=== PATIENT | male | born 1995 | race Caucasian/White ===

== ENCOUNTER 2018-08-28 02:42 | Emergency (ER) | payer OTHER ==
[2018-08-28] MEDS ORDERED: ONDANSETRON DISINTEGRATING 4 MG TAB ONE (03:21)
[2018-08-28] MEDS ORDERED: ONDANSETRON 4 MG/2 ML VIAL ONE (03:21)
[2018-08-28] MEDS ORDERED: ONDANSETRON DISINTEGRATING 4 MG TAB PO ONE (03:27)
--- NOTE | 2018-08-28 03:41 | EDPHY ---
H & P Stated Complaint: pain on right side of face/head, no trauma Time Seen by Provider: 08/28/18 03:26 HPI/ROS: Chief Complaint: Headache, vomiting HPI: 22-year-old male is woke this morning with a headache on his right pentecostal behind his right eye. Is about a 7/10. He has not have a history of similar headaches. No fevers or chills. No vision changes. No photophobia or phonophobia. There are no aggravating or alleviating factors. Did not take any medication for this. He then developed some nausea. Prior to my entering the room he says he vomited. He says his pain is now gone. Denies recent illness. No congestion. No increased tearing. ROS: 10 systems were reviewed and were negative except those elements noted in the HPI. PMH: Denies Social History: No smoking, no alcohol, no recreational drug use Family History: non-contributory Physical Exam: Gen: Awake, Alert, No Distress HEENT: Nose: no rhinorrhea Eyes: PERRLA, EOMI Mouth: Moist mucosa Neck: Supple, no JVD Chest: nontender, lungs clear to auscultation Heart: S1, S2 normal, no murmur Abd: Soft, non-tender, no guarding Back: no CVA tenderness, no midline tenderness Ext: no edema, non-tender Skin: no rash Neuro: CN II-XII intact, Sensation grossly intact, Strength 5/5 in bilateral upper and lower extremities - Personal History Current Tetanus/Diphtheria Vaccine: Yes Current Tetanus Diphtheria and Acellular Pertussis (TDAP): Yes - Medical/Surgical History Hx Asthma: No Hx Chronic Respiratory Disease: No Hx Diabetes: No Hx Cardiac Disease: No Hx Renal Disease: No Hx Cirrhosis: No Hx Alcoholism: No Hx HIV/AIDS: No Hx Splenectomy or Spleen Trauma: No - Social History Smoking Status: Never smoked Constitutional: Initial Vital Signs Temperature (C) 36.7 C 08/28/18 02:46 Heart Rate 70 08/28/18 02:46 Respiratory Rate 16 08/28/18 02:46 Blood Pressure 125/78 H 08/28/18 02:46 O2 Sat (%) 97 08/28/18 02:46 O2 Delivery Mode Room Air Allergies/Adverse Reactions: No Known Allergies Allergy (Unverified 08/28/18 02:46) Home Medications: Medication Instructions Recorded NK [No Known Home Meds] 08/28/18 Medical Decision Making ED Course/Re-evaluation: Patient's symptoms are gone. He is tolerating p. O.. Currently without complaint. Will discharge with follow-up as an outpatient. No evidence acute intracranial bleed or infection at this time. - Data Points Medications Given: Discontinued Medications Ondansetron HCl (Zofran Odt) 4 mg PO EDNOW ONE Stop: 08/28/18 03:28 Last Admin: 08/28/18 03:28 Dose: 4 mg Departure - Departure Disposition: Home, Routine, Self-Care Clinical Impression: Headache Condition: Good Instructions: Acute Headache (ED) Additional Instructions: Follow up at [facility] in 2-3 days for further evaluation. Return to the emergency department for worsening headache, confusion, nausea, vomiting, fevers, chills, or any other concerns. Referrals: [facility],. [Clinic] - As per Instructions
[2018-08-28 04:58] VITALS: BP 115/66
== END 2018-08-28 04:55 | disposition home or self-care (01) ==
LOC: EDBD 02:42
DX: R51 Headache (principal); R11.2 Nausea with vomiting, unspecified
CPT/HCPCS: J2405

== ENCOUNTER 2019-01-28 21:27 | Emergency (ER) | payer OTHER ==
[2019-01-28 21:33] VITALS: BP 124/65
--- NOTE | 2019-01-28 22:05 | EDPHY ---
H & P Time Seen by Provider: 01/28/19 21:53 HPI/ROS: Chief complaint: Low back pain History of present illness: This is a 23-year-old male who presents to the emergency department for low back pain. He reports the onset of symptoms over the last 2-3 weeks. Symptoms have been persistent. He feels them mostly in the right, lower aspect of the back it when he is bending forward or backwards. The pain appears to resolve at rest. He denies precipitating factors such as direct trauma. He denies any radiating pain including into the legs. He denies associated signs or symptoms including no fevers, no paresthesias, no saddle anesthesia, no weakness or paralysis. He has not taken any medications for the treatment of the back pain. Review of systems: A 10 point review of systems was obtained and other than described above was negative Social History: No history of IV drug abuse Smoking Status: Never smoked Physical Exam: General Appearance: Alert and no distress. Eyes: Pupils equal and round no injection. Respiratory: Chest is non tender, lungs are clear to auscultation. Cardiac: regular rate and rhythm Gastrointestinal: Abdomen is soft and non tender, no masses, bowel sounds normal. Musculoskeletal: Neck is supple and non tender. The spine is nontender to palpation along its entire length. Minor discomfort at the right SI joint. Minor discomfort to the right lumbar paraspinal muscles. The rest of the back is unremarkable. Extremities have full range of motion and are non tender. Skin: No rashes or lesions. Neurological: Alert and oriented x4. Strength and sensation intact and symmetrical. Patellar and Achilles reflexes 1+ bilaterally. Straight leg raise test is negative bilaterally. Constitutional: Initial Vital Signs Temperature (C) 37.0 C 01/28/19 21:30 Heart Rate 80 01/28/19 21:30 Respiratory Rate 16 01/28/19 21:30 Blood Pressure 124/65 H 01/28/19 21:30 O2 Sat (%) 96 01/28/19 21:30 O2 Delivery Mode Room Air Allergies/Adverse Reactions: No Known Allergies Allergy (Verified 01/28/19 21:32) Home Medications: Medication Instructions Recorded Cyclobenzaprine [Flexeril 10 MG 10 mg PO TID PRN #9 tab 01/28/19 (*)] MDM/Departure - MDM ED Course/Re-evaluation: Patient seen under the supervision of my secondary supervising physician Dr. Maricruz Allred. Patient presents with a 2-3 week history of low back pain. Minor tenderness on physical exam. Nonfocal neurologic exam. By history and physical exam I do not appreciate red flag risk factors to suspect serious causes of back pain. I do not believe imaging studies are warranted. Home care is discussed including ibuprofen and Flexeril. He is asked to follow up with a primary care or orthopedic doctor. Return precautions are given. Patient voiced understanding and agreement with plan. Differential Diagnosis: Included but not limited to lumbar strain, sacroiliitis, herniated intervertebral disc, doubtful significant causes such as epidural lesion or cauda equina syndrome - Depart Disposition: Home, Routine, Self-Care Condition: Good Instructions: Low Back Strain (ED) Additional Instructions: Follow-up with student health or orthopedics for continued evaluation and care Use ibuprofen 600 mg 3 times a day for the next 2-3 days for pain control You can also use the Flexeril for muscle relaxation, please note it can be sedating If symptoms worsen or new symptoms develop return to the emergency room for recheck Prescriptions: Cyclobenzaprine [Flexeril 10 MG (*)] 10 mg PO TID PRN #9 tab PRN Reason: Spasms Referrals: NONE *PRIMARY CARE P,. [Primary Care Provider] - As per Instructions [facility] [Clinic] - As per Instructions Kenji Orellana MD [Medical Doctor] - As per Instructions
== END 2019-01-28 22:17 | disposition home or self-care (01) ==
DX: M54.5 Low back pain (principal)